=== PATIENT | female | born 1965 | race Hispanic/Latino ===

== ENCOUNTER 2024-08-22 11:51 | Emergency (ER) | payer OTHER ==
--- NOTE | 2024-08-22 13:02 | RAD REPORT ---
EXAMINATION: US LEFT UPPER EXTREMITY VENOUS DOPPLER CLINICAL INDICATION: PAIN TECHNIQUE: Complete bilateral duplex sonography of the LEFT upper extremity veins was performed. The examination included compression for vein patency, color Doppler imaging and flow augmentation in response to distal compression of the internal jugular, brachiocephalic, subclavian, axillary, brachi al, radial, ulnar, cephalic and basilic veins. COMPARISON: No prior exam. FINDINGS: Duplex sonography testing of the veins of the LEFT upper extremity was performed. Color flow imaging shows all veins to be compressible with [id number] color filling. Pulsatile and phasic flow is present within all upper extremity deep and superficial veins examined. IMPRESSION: There is no deep vein or superficial vein thrombosis.
--- NOTE | 2024-08-22 13:05 | RAD REPORT ---
EXAMINATION: XR LEFT HUMERUS HISTORY: PAIN TECHNIQUE: Multiple views of the left humerus were obtained. COMPARISON: None FINDINGS: Mild osteopenia. No acute fracture or dislocation. No aggressive marrow pattern.
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
--- NOTE | 2024-08-22 14:12 | ER ---
Nurse's Notes [facility] Name: Vanessa Herbert Age: 59 yrs Sex: Female : 1965 Arrival Date: 08/22/2024 Time: 11:51 Bed 4 Private MD: Diagnosis: Pain in left upper arm Presentation: 08/22 12:12 Chief complaint: Patient states: Patient states her left arm has been hurting for about le1 2-3 months with worsening pain with movement. She was scheduled for an XR but has been unable due to health. Coronavirus screen: Vaccine status: Patient reports receiving the 1st dose of the Covid vaccine. Client denies travel out of the [place] in the last 14 days. At this time, the client does not indicate any symptoms associated with coronavirus-19. Ebola Screen: Patient negative for fever greater than or equal to 101.5 degrees Fahrenheit, and additional compatible Ebola Virus Disease symptoms Patient denies exposure to infectious person. Patient denies travel to an Ebola-affected area in the 21 days before illness onset. No symptoms or risks identified at this time. Initial Sepsis Screen: Does the patient meet any 2 criteria? No. Patient's initial sepsis screen is negative. Does the patient have a suspected source of infection? No. Patient's initial sepsis screen is negative. Risk Assessment: Do you want to hurt yourself or someone else? Patient reports no desire to harm self or others. Onset of symptoms is unknown. 12:12 Method Of Arrival: Ambulatory le1 12:12 Acuity: YANNI 4 le1 Triage Assessment: 12:16 General: Appears in no apparent distress. comfortable, Behavior is calm, cooperative, le1 appropriate for age. Pain: Complains of pain in left arm Pain currently is 9 out of 10 on a pain scale. Quality of pain is described as pressure. EENT: No deficits noted. Neuro: No deficits noted. Cardiovascular: No deficits noted. Respiratory: No deficits noted. GI: No deficits noted. : No deficits noted. Musculoskeletal: No deficits noted. Historical: - Allergies: 12:14 PENICILLINS; le1 - PMHx: 12:14 Diabetes mellitus; Hypercholesterolemia; Hypertensive disorder; le1 - Immunization history:: Adult Immunizations up to date, Client reports receiving the 1st dose of the Covid vaccine, Flu vaccine is not up to date. - Infectious Disease History:: Denies. - Social history:: Smoking status: Patient denies any tobacco usage or history of. Patient uses alcohol, occasionally. only on a social basis. Screenin:18 [facility] ED Fall Risk Assessment (Adult) History of falling in the last 3 months, le1 including since admission No falls in past 3 months (0 pts) Confusion or Disorientation No (0 pts) Intoxicated or Sedated No (0 pts) Impaired Gait No (0 pts) Mobility Assist Device Used No (0 pt) Altered Elimination No (0 pt) Score/Fall Risk Level 0 - 2 = Low Risk Oriented to surroundings, Maintained a safe environment, Educated pt \T\ family on fall prevention, incl call for assistance when getting out of bed, Assessed \T\ reinforced patient's understanding of fall precautions, Hourly rounding (assess needs \T\ fall precautionary measures) done, Used ambulatory aids as needed (educated on \T\ assisted with). Abuse screen: Denies threats or abuse. Denies injuries from another. Nutritional screening: No deficits noted. Tuberculosis screening: No symptoms or risk factors identified. Assessment: 12:18 Reassessment: Triage assessment. Musculoskeletal: Range of motion: intact in all le1 extremities. Vital Signs: 12:10 BP 158 / 79; Pulse 83; Resp 15; Temp 98; Pulse Ox 98% ; Weight 121.11 kg; Height 5 ft. cm10 2 in. ; Pain 9/10; 13:30 BP 131 / 78; Pulse 70; Resp 16; Pulse Ox 95% on R/A; le1 14:05 BP 140 / 86; Pulse 67; Resp 16; Pulse Ox 96% on R/A; Pain 7/10; le1 14:27 BP 140 / 86; Pulse 66; Resp 16; Temp 98(O); Pulse Ox 95% on R/A; Pain 7/10; le1 12:10 Body Mass Index 48.83 (121.11 kg, 157.48 cm) cm10 12:10 Pain Scale: Adult cm10 14:05 Pain Scale: Adult le1 14:27 Pain Scale: Adult le1 ED Course: 12:01 Patient arrived in ED. sj2 12:02 Gissel Solorio FNP-C [facility] kb 12:02 Keagan Brooks MD is Attending Physician. kb 12:02 Djiboutian, LaKendric, RN is Primary Nurse. le1 12:14 Triage completed. le1 12:18 Arm band placed on right wrist. le1 12:19 Patient has correct armband on for positive identification. Bed in low position. Call le1 light in reach. Side rails up X 1. Provided Education on: Patient informed to use call light if needed.. 12:50 Humerus Left XRAY In Process Unspecified. EDMS 12:56 UPPER EXTREMITY VENOUS UNILATE In Process Unspecified. EDMS 14:27 No provider procedures requiring assistance completed. Patient did not have IV access le1 during this emergency room visit. Administered Medications: No medications were administered Medication: 14:28 VIS not applicable for this client. le1 Outcome: 14:12 Discharge ordered by . kb 14:27 Discharged to home ambulatory, le1 14:27 Condition: good 14:27 Discharge instructions given to patient, Instructed on discharge instructions, follow up and referral plans. medication usage, Demonstrated understanding of instructions, follow-up care, medications, Prescriptions given X 1, 14:31 Patient left the ED. le1 Signatures: Dispatcher [employer] EDMS Gissel Solorio, LAB COURIER-C LAB COURIER-CkRoseline Arizmendi RN RN cm10 Uday Holguin, RN RN le1 Liu Florian sj2 Corrections: (The following items were deleted from the chart) 12:16 12:14 PMHx: Hypertensive disorder; le1 le1 12:16 12:14 PMHx: Hypercholesterolemia; le1 le1 14:27 14:27 BP 140 / 86; Pulse 66bpm; Resp 16bpm; Pulse Ox 95% RA; Temp 98F Oral; Pain 4/10, le1 Adult; le1
[2024-08-22 14:55] VITALS: TEMP 98
[2024-08-22 14:57] VITALS: BP 140/86
[2024-08-22 14:59] VITALS: O2SAT 95
== END 2024-08-22 14:31 | disposition home or self-care (01) ==
LOC: ER 11:51
DX: M79.622 Pain in left upper arm (principal)
CPT/HCPCS: 93971; 99283

== ENCOUNTER 2024-08-31 20:17 | Emergency (ER) | payer OTHER ==
[2024-08-31] MEDS ORDERED: IBUPROFEN 400 MG TAB ONE (21:05)
[2024-08-31] MEDS ORDERED: methocarbamoL 750 MG TAB ONE (21:05)
--- NOTE | 2024-08-31 21:08 | RAD REPORT ---
EXAMINATION: XR RIGHT FOOT CLINICAL INDICATION: Female, 59 years old. right small toe injury TECHNIQUE: Multiple views of the right foot were obtained. COMPARISON: No prior exam. FINDINGS: Diffuse osteopenia. Fracture is present of the proximal phalanx of the fifth toe. Moderate calcaneal spurs.
[2024-08-31] MEDS ORDERED: HYDROCODONE/APAP 5/325 MG TAB ONE (21:13)
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
--- NOTE | 2024-08-31 21:44 | EDPHYS ---
Physician Documentation [facility] Name: Vanessa Herbert Age: 59 yrs Sex: Female : 1965 Arrival Date: 08/31/2024 Time: 20:17 Bed 23 Private MD: ED Physician Carlos Oliver HPI: 08/31 20:24 This 59 yrs old Female presents to ER via Unassigned with complaints of Toe sp4 Injury. 21:33 Patient presents with acute right foot injury to the toes #4 and 5. Patient states she sp4 there is discoloration and pain. . Historical: - Allergies: 20:41 PENICILLINS; dd2 20:41 Amoxicillin; dd2 - PMHx: 20:41 diabetes mellitus; Hypercholesterolemia; Hypertensive disorder; dd2 - PSHx: 20:41 None; dd2 - Immunization history:: Adult Immunizations up to date, Flu vaccine is not up to date. Patient has never been vaccinated. - Infectious Disease History:: Denies. - Social history:: Smoking status: Patient denies any tobacco usage or history of. - Family history:: not pertinent. ROS: 21:33 Constitutional: Negative for fever, chills, and weight loss, positive right foot injury sp4 positive right foot pain toes #4 and 5. Positive right foot discoloration toes #4 and 5. 21:33 All other systems are negative, Exam: 21:33 Constitutional: This is a well developed, well nourished patient who is awake, alert, sp4 and in no acute distress. Head/Face: Normocephalic, atraumatic. Eyes: Pupils equal round and reactive to light, extra-ocular motions intact. Lids and lashes normal. Conjunctiva and sclera are not injected. Cornea within normal limits. Periorbital areas with no swelling, redness, or edema. ENT: Nares patent. No nasal discharge, no septal abnormalities noted. Tympanic membranes are normal and external auditory canals are clear. Oropharynx with no redness, swelling, or masses, exudates, or evidence of obstruction, uvula midline. Mucous membranes moist. Neck: Trachea midline, no thyromegaly or masses palpated, and no cervical lymphadenopathy. Supple, full range of motion without nuchal rigidity, or vertebral point tenderness. Chest/axilla: Normal chest wall appearance and motion. Nontender with no deformity. No lesions are appreciated. Cardiovascular: Regular rate and rhythm with a normal S1 and S2. No gallops, murmurs, or rubs. Normal PMI, no JVD. No pulse deficits. Respiratory: Lungs have equal breath sounds bilaterally, clear to auscultation and percussion. No rales, rhonchi or wheezes noted. No increased work of breathing, no retractions or nasal flaring. Abdomen/GI: Soft, with normal bowel sounds. No distension or tympany. No guarding or rebound. No evidence of tenderness throughout. Back: No spinal tenderness. No costovertebral tenderness. Skin: Warm, dry with normal turgor. Normal color with no rashes, no lesions, and no evidence of cellulitis. MS/ Extremity: Pulses equal, no cyanosis. Neurovascular intact. Full, normal range of motion. Positive right foot toe #4 and 5 discoloration Neuro: Awake and alert, GCS 15, oriented to person, place, time, and situation. Cranial nerves II-XII grossly intact. Motor strength 5/5 in all extremities. Sensory grossly intact. Psych: Awake, alert, with orientation to person, place and time. Behavior, mood, and affect are within normal limits Vital Signs: 20:35 BP 160 / 108; Pulse 77; Resp 16; Temp 98.3; Pulse Ox 97% on R/A; Weight 121.11 kg; dd2 Height 5 ft. 2 in. ; Pain 9/10; 20:35 Body Mass Index 48.83 (121.11 kg, 157.48 cm) dd2 20:35 Pain Scale: Adult dd2 Drummond Coma Score: 21:33 Eye Response: spontaneous(4). Motor Response: obeys commands(6). Verbal Response: sp4 oriented(5). Total: 15. Procedures: 21:37 Splinting: Splint applied to right ankle, lateral aspect of right foot, right Achilles, sp4 right heel and medial aspect of right foot using Ortho 3D boot, applied by myself. Examined by me, post splint application: neurovascular intact, 2+ distal pulses palpable, brisk capillary refill noted, Patient tolerated well, Advised Ortho boot for the next 4 weeks.. MDM: 21:37 Differential diagnosis: fracture, sprain, arthritis, gout, cellulitis. Data reviewed: sp4 vital signs, nurses notes, radiologic studies, plain films. Consideration of Admission/Observation Escalation of care including admission/observation considered. ED course: EXAMINATION: XR RIGHT FOOT CLINICAL INDICATION: Female, 59 years old. right small toe injury TECHNIQUE: Multiple views of the right foot were obtained. COMPARISON: No prior exam. FINDINGS: Diffuse osteopenia. Fracture is present of the proximal phalanx of the fifth toe. Moderate calcaneal spurs. . 21:43 Medical Screening Exam initiated sp4 08/31 20:54 Order name: Foot Right 3 View XRAY sp4 Administered Medications: 21:27 Drug: HYDROcodone-acetaminophen PO 5 mg-325 mg 2 tabs PO once Route: PO; jb4 21:56 Follow up: Response: No adverse reaction; Marked relief of symptoms; Pain is decreased jb4 21:27 Drug: Ibuprofen PO 800 mg PO once Route: PO; jb4 21:57 Follow up: Response: No adverse reaction; Marked relief of symptoms; Pain is decreased jb4 21:27 Drug: Methocarbamol PO 750 mg PO once Route: PO; jb4 21:57 Follow up: Response: No adverse reaction; Marked relief of symptoms; Pain is decreased jb4 Disposition Summary: 08/31/24 21:43 Discharge Ordered Notes: Location: Home sp4 Problem: new sp4 Symptoms: have improved sp4 Condition: Stable sp4 Diagnosis - Right Foot proximal phalanx of the fifth toe acute fracture sp4 - Nondisplaced fracture of proximal phalanx of right lesser toe(s), initial encounter sp4 for closed fracture Followup: sp4 - With: Private Physician - When: 10 - 14 days - Reason: Recheck today's complaints Discharge Instructions: - Discharge Summary Sheet sp4 - Toe Fracture, [id number] sp4 Forms: - Patient Portal Instructions sp4 Prescriptions: - Tramadol 50 mg Oral tablet - take 1 tablet ORAL route every 8 hours as needed; 20 tablet; Refills: 0, sp4 Product Selection Permitted Signatures: Dispatcher [employer] EDMS Damon Gibson RN RN jb4 Carlos Oliver MD MD sp4 ERNA PAZ RN RN dd2
[2024-08-31 22:02] VITALS: BP 160/108; TEMP 98.3; O2SAT 97
== END 2024-08-31 21:57 | disposition home or self-care (01) ==
LOC: ER 20:17
DX: S92.514A Nondisplaced fracture of proximal phalanx of right lesser toe(s), initial encounter for closed fracture (principal)
CPT/HCPCS: 99283